=== PATIENT | male | born 1995 | race Caucasian/White ===

== ENCOUNTER 2018-12-19 19:23 | Emergency (ER) | payer OTHER ==
[~2018-12-19] VITALS: Ht 172.7 cm; Wt 59.0 kg
[2018-12-19 19:37] VITALS: BP 123/66
--- NOTE | 2018-12-19 19:40 | NUR ---
TO LOBBY A/W BED ,XRAY AMBULATORY
--- NOTE | 2018-12-19 21:00 | NUR ---
PATIENT IS A 23 Y/O MALE WHO PRESENTS TO THE ED C/O COUGH. PER PATIENT SYMPTOMS HAVE BEEN GOING ON X1 WEEK. PT REPORTS 8/10 ACHING CHEST PAIN AND BILATERAL EAR PAIN. PT DENIES N/V/D. REPORTS COUGH AND SOB, LUNG SOUNDS CLEAR BL, 98% ON RA. PT AWAKE LOU ALERT, RR EVEN/UNLABORED. PT REPOSITIONED FOR COMFORT, BED IN LOWEST POSITION. GOVIND MD DR. GUTIERRES NOTIFIED. WILL CONTINUE TO MONITOR. PMH---PRONE TO PNEUMONIA NKA
--- NOTE | 2018-12-19 21:05 | NUR ---
Dr. Hanna examining patient.
--- NOTE | 2018-12-19 21:20 | NUR ---
PATIENT EXPRESSING WISH TO LEAVE AMA. PT ADVISED ON BENEFITS ON STAYING IN ED. ER MD NOTIFIED AND DRAG OUT WORKER MADE AWARE.
--- NOTE | 2018-12-19 21:25 | NUR ---
PATIENT STATES THAT HE WILL WAIT FOR DISCHARGE PAPERWORK.
--- NOTE | 2018-12-19 21:40 | NUR ---
PT MOVED TO ER CHAIR E
[2018-12-19 22:44] VITALS: BP 100/74
--- NOTE | 2018-12-19 22:44 | NUR ---
Patient discharged with v/s stable. Written and verbal after care instructions given and explained. Patient verbalized understanding. Ambulatory with steady gait. All questions addressed prior to discharge. Advised to follow up with PMD.
== END 2018-12-19 22:44 | disposition home or self-care (01) ==
LOC: MED 19:23
DX: J06.9 Acute upper respiratory infection, unspecified (principal)
CPT/HCPCS: 71045; 99283; Q0092

== ENCOUNTER 2019-01-16 03:56 | Emergency (ER) | payer OTHER ==
[~2019-01-16] VITALS: Ht 175.3 cm; Wt 61.2 kg
[2019-01-16 04:00] VITALS: BP 122/79
--- NOTE | 2019-01-16 04:00 | NUR ---
PT AMBULATED TO BED #11
[2019-01-16 04:08] VITALS: BP 122/79
--- NOTE | 2019-01-16 04:08 | NUR ---
23 Y/O M PRESENTED TO ED WITH C/O FOREIGN OBJECT IN R EYE SINCE 1500 YESTERDAY. AAOX4. PER PT "I WAS USING [employer] AND SOME METAL JOB INTO MY PAIN. I PULLED SOME OF IT OUT WITH A MAGNET." R EYE SCELERA INJECTED, CONJUCTIVIA PINK AND CLEAR. PT DENIES PAIN AT THIS TIME BUT HAS SOME R EYE ITCHING AND DISCOMFORT. PT DENIES BLURRED VISION. PT MOTHER AT BEDSIDE. BED IN LOWEST POSTION AND LOCKED. WILL CONTINUE TO MONITOR.
--- NOTE | 2019-01-16 04:20 | NUR ---
PT DENIES BLURRED VISION. PT SEES A SPOT ON RIGHT EYE
[2019-01-16] MEDS ORDERED: TETRACAINE HCL/PF 0.5% OPTH 4 ML BTL OP ONE (04:40)
[2019-01-16] MEDS ORDERED: FLUORESCEIN OPTH STRIP 0.6 MG OP ONE (04:40)
--- NOTE | 2019-01-16 04:45 | NUR ---
EYE PROCEDURE SET UP SET AT BED SIDE
--- NOTE | 2019-01-16 05:05 | NUR ---
VISUAL ACUITY, R 20/30 AND L 20/50. PT NORMALLY WEARS CORRECTIVE LENSES, BUT NOT PRESENT AT TIME OF EXAM
--- NOTE | 2019-01-16 05:15 | NUR ---
Patient discharged with v/s stable. Written and verbal after care instructions given and explained. Patient alert, oriented and verbalized understanding of instructions. Ambulatory with steady gait. All questions addressed prior to discharge. ID band removed. Patient advised to follow up with PMD. Rx of tobramycin and naprosyn given. Patient educated on indication of medication including possible reaction and side effects. Opportunity to ask questions provided and answered.
== END 2019-01-16 05:15 | disposition home or self-care (01) ==
LOC: MED 03:56
DX: S05.01XA Injury of conjunctiva and corneal abrasion without foreign body, right eye, initial encounter (principal); X58.XXXA Exposure to other specified factors, initial encounter; Y93.89 Activity, other specified; Y92.89 Other specified places as the place of occurrence of the external cause; Y99.8 Other external cause status
CPT/HCPCS: 99283